=== PATIENT | male | born 1965 | race Caucasian/White ===

== ENCOUNTER 2017-01-18 06:44 | Inpatient (IN) | payer BC ==
[~2017-01-18] VITALS: Ht 190.5 cm; Wt 108.6 kg
--- NOTE | ~2017-01-18 | CT2 ---
[facility] A Service of [facility] & [facility] RADIOLOGY TEXT RESULTS PATIENT: ALTAGRACIA HOUGH LOCATION: [facility] 575-01 : 63 UNIT #: [id number] AGE: [address]: Remigio Segura MD SEX: M ORDER DR: [id number] [address] [address] [id number] MR#: [id number] Acc #: [id number] NAME: ALTAGRACIA HOUGH : 1965 SEX: M STUDY DATE/TIME: 01/18/2017 8:17 UNIT: SED ROOM: STUDY DESCRIPTION: CT Abd and Pelv W Cont Attending Physician: Gregg Doyle M.D. Ordering Physician: Gregg Doyle M.D. Primary Care Physician: Simona Gonzalez A.P.R.N. MEDICAL IMAGING REPORT This report is preliminary unless electronic signature is present. EXAM CT abdomen and pelvis 01/18/2017 HISTORY Blood pressure low, dizzy, nausea, left lower quadrant pain with palpitations. Evaluate for abdominal aortic aneurysm. The CT exam was performed with one or more of the following radiation dose reduction techniques: automatic exposure control, adjustment of mA and/or kV according to patient size, and iterative reconstruction. FINDINGS CT abdomen and pelvis performed with intravenous administration 100 mL Isovue 370. Comparison 03/17/2016. The lung bases show dependent atelectasis. The inferior heart and pericardium are unremarkable. The liver, gallbladder, spleen, pancreas, adrenal glands are unremarkable. Nonobstructing renal calculi bilaterally. Measuring 1-2 mm on the left and up to about 4 mm on the right. No hydronephrosis or hydro ureter. No ureteral or bladder calculi. CT CT Pelvis: No inguinal adenopathy. Urinary bladder unremarkable. Trace free fluid in the pelvis. Not a drainable fluid collection. No pelvic or retroperitoneal adenopathy. The distal esophagus, stomach, small bowel unremarkable. Appendix normal. Colon unremarkable to the level of the proximal to mid sigmoid colon. In the proximal to mid sigmoid colon there is a segment of thickened colon measuring approximately 10 cm in length. There is at least 1 inflamed diverticulum seen in this region. There is mural thickening asymmetric along the posterior aspect of the involved colon. Small amount of nearby free fluid as noted. No abscess. No free air. Findings most consistent with acute diverticulitis. No obstruction. Atherosclerotic arterial calcifications. Aorta normal in caliber. Bony structures show no acute abnormality. [facility]. [facility] A Service of [facility] & [facility] RADIOLOGY TEXT RESULTS PATIENT: ALTAGRACIA HOUGH LOCATION: [facility] 575-01 : [birth year] UNIT #: [id number] AGE: [address]: Remigio Segura MD SEX: M ORDER DR: IMPRESSION 1. Findings most consistent with acute diverticulitis involving a 10 cm segment of proximal to mid sigmoid colon. There is eccentric mural thickening along the posterior aspect of the involved colon with adjacent inflammatory fat stranding and haziness and a trace amount of free fluid. This is not a drainable fluid collection. At least one inflamed diverticulum is seen. No obstruction, abscess or free air. Follow up imaging after treatment for diverticulitis is recommended to confirm resolution of the wall thickening. As noted, the mural thickening is eccentric. I see no compelling evidence of mass lesion but followup to resolution is recommended. 2. Small bowel appendix normal. 3. Nonobstructing renal calculi bilaterally. See sizes above. 4. Dependent atelectasis lung bases. 5. No aortic aneurysm or dissection. Scattered atherosclerotic arterial calcifications. Dictated by... Gage Lyles M.D. THIS IS AN ELECTRONICALLY VERIFIED REPORT Gage Lyles M.D. at 01/20/2017 6:13 PM EDENILSON/isiah TD: 01/18/2017 13:25 JOB #: [id number] MEDICAL IMAGING REPORT Page 1 of 1
--- NOTE | ~2017-01-18 | EKG ---
PATIENT: ALTAGRACIA HOUGH UNIT #: [id number] Ventricular Rate: 76 BPM Atrial Rate: 76 BPM P-R Interval: 146 ms QRS Duration: 76 ms Q-T Interval: 348 ms QTC Calculation(Bezet): 391 ms P [place]: 35 degrees Calculated R [place]: 68 degrees Calculated T [place]: 111 degrees Diagnosis Line: Normal sinus rhythm Diagnosis Line: Nonspecific T wave abnormality Diagnosis Line: Abnormal ECG Diagnosis Line: When compared with ECG of 07-FEB-2014 15:47, Diagnosis Line: ST no longer depressed in Inferior leads Diagnosis Line: ST no longer elevated in Anterolateral leads Diagnosis Line: T wave inversion no longer evident in Inferior Diagnosis Line: leads Diagnosis Line: Nonspecific T wave abnormality, worse in Lateral Diagnosis Line: leads Diagnosis Line: Confirmed by STAS SALINAS MD ([id number]) on Diagnosis Line: 01/20/2017 8:23:15 AM INTERPRETING MD: BRAD RAPHAEL
--- NOTE | ~2017-01-18 | DS ---
Unit #: [id number] #: [id number] Patient: ALTAGRACIA HOUGH [id number] [address] [address] [id number] I MR#: [id number] NAME: ALTAGRACIA HOUGH. ROOM: 575 Age: 51 Sex: M Admission Date: 01/18/2017 : 1965 Discharge Date: 01/19/2017 Attending Physician: Remigio Segura M.D. Primary Care Physician: Simona Gonzalez A.P.R.N. DISCHARGE SUMMARY PRIMARY DIAGNOSIS Acute diverticulitis. SECONDARY DIAGNOSES 1. Near syncope. 2. Hyponatremia. 3. Hypertension. 4. Diabetes. HOSPITAL COURSE The patient was admitted with findings of diverticulitis on CT scanning with mild elevation in white blood cell count. The patient was started on IV antibiotics here in the hospital and white blood cell count improved. Blood pressures were stable for twenty-four hours prior to discharge. The patient was afebrile, did not appear to have any complications. In short, the patient clinically improved more rapidly than would be expected and was able to be discharged home early on oral antibiotics. At the time of discharge, we have elected to place him on Bactrim and Flagyl for an additional nine days. He is not requiring any pain medications and is not tender to palpation and is tolerating a diet. DISCHARGE DISPOSITION To home. DISCHARGE STATUS Stable. DISCHARGE ACTIVITY Ad chung. DISCHARGE DIET A diabetic low sodium diet. DISCHARGE FOLLOWUP With his primary care physician, Dr. Toro in one week and would also recommend colonoscopy as an outpatient in eight weeks. DISCHARGE MEDICATIONS 1. Duloxetine 60 mg p.o. daily 2. Trazodone 50 mg p.o. q.h.s. 3. Metformin 1000 mg p.o. b.i.d. 4. Carvedilol 12.5 mg p.o. b.i.d. 5. Lipitor 40 mg p.o. daily 6. Aspirin 81 mg p.o. daily Unit #: [id number] #: [id number] Patient: ALTAGRACIA HOUGH 7. Ranexa 500 mg p.o. b.i.d. 8. Plavix 75 mg p.o. daily 9. Bactrim DS one tablet p.o. b.i.d. for nine days 10. Flagyl 500 mg p.o. t.i.d. for nine days Dictated by... Remigio Segura M.D. JARROD/justin TD: 01/20/2017 08:21 JOB #: [id number] DISCHARGE SUMMARY Page 1 of 1 X Remigio Segura MD X DISCHARGE SUMMARY
--- NOTE | ~2017-01-18 | HP ---
Unit #: [id number] #: [id number] Patient: ALTAGRACIA HOUGH [id number] [address] [place], [place] [address] [id number] MR#: [id number] NAME: ALTAGRACIA HOUGH. ROOM: 575 Age: 51 Sex: M Admission Date: 01/18/2017 : 1965 Attending Physician: Amy Shook M.D. Primary Care Physician: Simona Gonzalez A.P.R.N. HISTORY AND PHYSICAL CHIEF COMPLAINT Abdominal pain. HISTORY OF PRESENT ILLNESS The patient is a 51-year-old male with a history of diabetes, hyperlipidemia, morbid obesity, and osteoarthritis, who presented to [facility] ER complaining of abdominal pain. The patient stated the pain has been mainly in the right groin. It started on Wednesday. The patient had a CT of the abdomen and pelvis that showed diverticulitis and is being admitted for the above reasons. The patient denies any fever or chills and denies any nausea and vomiting. The patient also complains of left lower quadrant pain. The patient (1) positive for diarrhea. Denies any blood in the stools and no history of colonoscopies in the past. PAST MEDICAL HISTORY 1. Hypertension. 2. Diabetes. 3. Arthritis. 4. Kidney stones. 5. Morbid obesity. PAST SURGICAL HISTORY Large lipoma removed from his right anterior thigh. ALLERGIES No known drug allergies. MEDICATIONS 1. Trazodone. 2. Plavix. 3. Ranexa. 4. Metformin. 5. Lipitor. 6. Coreg. 7. Nilesh aspirin. SOCIAL HISTORY Denies smoking, drinks alcohol rarely, and denies any drug use. He lives with his and is employed. He has a 27-year-old son who still lives at home. FAMILY HISTORY Reviewed and none. Unit #: [id number] #: [id number] Patient: ALTAGRACIA HOUGH REVIEW OF SYSTEMS Positive for abdominal pain, positive for diarrhea, and positive for groin pain. Denies any nausea or vomiting and denies any chest pain. Positive for near syncopal episode and also positive for dizziness, dehydration, and diaphoresis. All other systems have been reviewed and are negative. PHYSICAL EXAMINATION GENERAL: Patient is lying in bed not in acute distress. VITAL SIGNS: Temperature 97.6, pulse 77, respiratory rate 18, blood pressure 120/70, and saturating 99% on room air. HEENT: Head atraumatic, normocephalic. Pupils equal, round, and reactive to light and accommodation. Dry mucous membranes. NECK: Supple. LUNGS: Decreased air entry at the bases. HEART: Regular rate and rhythm. ABDOMEN: Soft. Positive bowel sounds. Tenderness at the left lower quadrant. EXTREMITIES: No cyanosis, no clubbing. NEUROLOGIC: Alert, awake, and oriented. No gross focal motor deficit. DIAGNOSTIC STUDIES LABORATORY: WBC 11, hemoglobin 13.4, hematocrit 40.5, and platelets 275,000. Troponin less than 0.05. Sodium 134, potassium 4.4, chloride 105, bicarb 24, glucose 199, BUN 16, creatinine 1.2, AST 12, ALT 14, and alkaline phosphatase 64. Lipase 30 and amylase 16. Glucose is 130. IMAGING: CT of the abdomen and pelvis shows findings most consistent with acute diverticulitis involving a 10 cm segment of proximal to mid sigmoid colon. There is eccentric mural thickening along the posterior aspect of the involved colon with adjacent inflammatory fat stranding and haziness and a trace amount of free fluid. This is not a drainable fluid collection. At least one inflamed diverticulum is seen. No obstruction, abscess, or free air. Followup imaging after treatment for diverticulitis is recommended. Small bowel appendix normal. Nonobstructing renal calculi bilaterally. Dependent atelectasis lung bases. No aortic aneurysm or dissection. ASSESSMENT 1. Diverticulitis. 2. Near syncopal episode. 3. Hyponatremia. PLAN Admit to inpatient with telemetry. Continue with IV antibiotics with Rocephin and Zithromax and check lactic acid. If it is high, then initiate the sepsis protocol. Patient (2) IV fluids and continue with low-dose sliding scale. Patient was recommended for colonoscopy in six to eight weeks after acute inflammation is resolved. Further recommendations will follow. Dictated by Aldair Camacho TD: 01/18/2017 17:58 JOB #: [id number] Unit #: [id number] #: [id number] Patient: ALTAGRACIA HOUGH HISTORY AND PHYSICAL Page 1 of 1 X SUDARSHAN BOWER MD HISTORY AND PHYSICAL
[~2017-01-18 06:44] MED LIST: BAYER CHEWABLE81 MG PO; CELEXA PO; COREG6.25 MG PO; COZAAR; FLOMAX0.4 M1 PO; GLUCOPHAGE500 M1 PO; JANUVIA PO; LEXAPRO PO; LIPITOR PO; MOBIC; ONGLYZA5 MG PO; PHENERGAN25 M1 PO; VITAMIN D 4001 UDTAB PO
[2017-01-18] MEDS ORDERED: CLOPIDOGREL75 MG (06:52)
[2017-01-18] MEDS ORDERED: RANEXA500 MG (06:52)
[2017-01-18] MEDS ORDERED: DESYREL50 MG PO ×2 (06:52→10:20)
[2017-01-18 07:35] LABS: BASOPHIL% 0.3 % (0-2.5); EOSINOPHIL# 0.1 X10e3 (0-0.7); EOSINOPHIL% 0.8 % (0.0-7.0); HEMATOCRIT 40.5 % (38.0-50.0); HEMOGLOBIN 13.4 gm/dL (13.0-16.0); LYMPHOCYTE# 1.4 X10e3 (1.0-3.5); LYMPHOCYTE% 12.6 % (17.0-45.0); MEAN CELL VOLUME 86.2 FL (83-96); MEAN CORPUSCULAR HEMOGLOBIN 28.5 PG (28-34); MEAN CORPUSCULAR HGB CONC 33.1 g/dL (30-36); MEAN PLATELET VOLUME 7.8 FL (6.5-11.5); MONOCYTE% 9.1 % (3.0-12.0); NEUTROPHIL# 8.5 X10e3 (1.5-7.1); NEUTROPHIL% 77.2 % (40-75); PLATELET COUNT 275 X10e3 (140-420); RED BLOOD COUNT 4.69 X10e (3.90-5.60)
[2017-01-18 07:48] LABS: POC - CKMB <1.0 ng/mL (0.0-7.9)
[2017-01-18 07:48] LABS: DIFF IND NO
[2017-01-18 07:49] LABS: POC - TROPONIN <0.05 ng/mL (<=0.05)
[2017-01-18 08:02] LABS: ALBUMIN SERUM 4.1 g/dL (3.5-5.0); BILIRUBIN, DIRECT 0.1 mg/dL (0.0-0.2); BILIRUBIN,TOTAL 1.1 mg/dL (0.2-2.0); BUN/CREATININE RATIO 13.33; CALCIUM SERUM 9.2 mg/dL (8.4-10.2); CREATININE SERUM 1.2 mg/dL (0.6-1.4); GLOM FILT RATE Estimated 69.1 mL/min (>60); POTASSIUM 4.4 mmol/L (3.5-5.1); PROTEIN TOTAL SERUM 7.3 g/dL (6.0-8.3)
[2017-01-18] MEDS ORDERED: CLOPIDOGREL75 MG PO (10:20)
[2017-01-18] MEDS ORDERED: RANEXA500 MG PO (10:20)
[2017-01-18] MEDS ORDERED: METFORMIN HCL1000 M1 PO (10:20)
[2017-01-18] MEDS ORDERED: BAYER CHEWABLE81 MG PO (10:21)
[2017-01-18] MEDS ORDERED: LIPITOR40 MG PO (10:21)
[2017-01-18] MEDS ORDERED: COREG12.5 MG PO (10:21)
[2017-01-18] MEDS ORDERED: DULOXETINE HCL60 M1 PO (15:43)
[2017-01-18 16:07] LABS: CK TOTAL 37 IU/L (36-174)
[2017-01-18 23:55] LABS: CK TOTAL 41 IU/L (36-174)
[2017-01-19 05:20] LABS: BASOPHIL% 0.4 % (0-2.5); EOSINOPHIL# 0.1 X10e3 (0-0.7); EOSINOPHIL% 1.4 % (0.0-7.0); HEMATOCRIT 37.7 % (38.0-50.0); HEMOGLOBIN 12.5 gm/dL (13.0-16.0); LYMPHOCYTE# 1.5 X10e3 (1.0-3.5); LYMPHOCYTE% 17.8 % (17.0-45.0); MEAN CELL VOLUME 85.3 FL (83-96); MEAN CORPUSCULAR HEMOGLOBIN 28.2 PG (28-34); MEAN CORPUSCULAR HGB CONC 33.1 g/dL (30-36); MEAN PLATELET VOLUME 7.5 FL (6.5-11.5); MONOCYTE# 0.7 X10e3 (0-1.0); MONOCYTE% 8.4 % (3.0-12.0); PLATELET COUNT 245 X10e3 (140-420); RED BLOOD COUNT 4.42 X10e (3.90-5.60); RED CELL DISTRIBUTION WIDTH 14.6 % (11.0-15.5); WHITE BLOOD COUNT 8.3 X10e3 (4.0-10.5)
[2017-01-19 05:21] LABS: DIFF IND NO
[2017-01-19 06:41] LABS: ALBUMIN SERUM 3.4 g/dL (3.5-5.0); BILIRUBIN,TOTAL 0.9 mg/dL (0.2-2.0); CALCIUM SERUM 8.8 mg/dL (8.4-10.2); CREATININE SERUM 1.1 mg/dL (0.6-1.4); GLOM FILT RATE Estimated 76.8 mL/min (>60); POTASSIUM 4.2 mmol/L (3.5-5.1); PROTEIN TOTAL SERUM 6.5 g/dL (6.0-8.3)
[2017-01-19] MEDS ORDERED: BACTRIM DS TAB1 EACH PO (15:20)
[2017-01-19] MEDS ORDERED: FLAGYL PO (15:22)
== END 2017-01-19 17:24 | disposition home or self-care (01) | DRG 392 ==
LOC: SED 06:44 → CEDOF 09:37 → SED 10:08 → C5C 14:46 → CEDOF 14:46 → C5C 14:46
PROVIDERS: Emergency Medicine; Internal Medicine
DX: K57.92 Diverticulitis of intestine, part unspecified, without perforation or abscess without bleeding (principal); E87.1 Hypo-osmolality and hyponatremia; I10 Essential (primary) hypertension; R55 Syncope and collapse; E11.9 Type 2 diabetes mellitus without complications; M19.90 Unspecified osteoarthritis, unspecified site; Z87.442 Personal history of urinary calculi; E78.5 Hyperlipidemia, unspecified; E66.01 Morbid (severe) obesity due to excess calories; Z79.84 Long term (current) use of oral hypoglycemic drugs; Z79.82 Long term (current) use of aspirin
CPT/HCPCS: 36415; 74177; 80048; 80053; 80076; 82150; 82550; 82553; 82947; 83690; 83874; 84484; 85025; 93005; 94760; 96360; 99285; J0696; J2543; Q9967